=== PATIENT | female | born 1985 | race Caucasian/White ===

== ENCOUNTER → 2021-10-11 | Outpatient (REF) | payer OTHER | LOC: M PLALAB 09:52 | PROVIDERS: ATTEND Advanced Practice Midwife | DX: Z01.419 Encounter for gynecological examination (general) (routine) without abnormal findings (principal); Z12.4 Encounter for screening for malignant neoplasm of cervix ==

== ENCOUNTER → 2022-10-18 | Outpatient (REF) | payer OTHER | LOC: M PLALAB 11:19 | PROVIDERS: ATTEND Advanced Practice Midwife | DX: N90.89 Other specified noninflammatory disorders of vulva and perineum (principal); L53.9 Erythematous condition, unspecified ==

== ENCOUNTER → 2022-11-22 | Outpatient (CLI) | payer OTHER ==
[2022-11-22 14:10] LABS: PROGESTERONE 16.93 NG/ML
[2022-11-22 14:11] LABS: FOLLICLE STIMULATING HORMONE 4.9 mIU/ML; FREE T4 1.07 NG/DL (0.89-1.76)
[2022-11-22 14:12] LABS: ESTRADIOL 91.8 PG/ML; LUTEINIZING HORMONE 3.9 mIU/ML; THYROID STIMULATING HORMONE 1.809 uIU/ML (0.55-4.78)
[2022-11-25 12:07] LABS: TESTOSTERONE FREE (DIRECT) 0.4 pg/mL (0.0-4.2); VITAMIN D 1,25 DIHYDROXY 49.5 pg/mL (24.8-81.5)
== END ==
LOC: M PLALAB 10:52
PROVIDERS: ATTEND Advanced Practice Midwife
DX: Z01.419 Encounter for gynecological examination (general) (routine) without abnormal findings (principal)